=== PATIENT | female | born 1935 ===

== ENCOUNTER 2018-01-03 13:28 | Emergency (ER) | payer OTHER ==
[~2018-01-03] VITALS: Ht 157.5 cm; Wt 59.9 kg
[~2018-01-03 13:28] MED LIST: CEFTIN250 MG/5 M PO; CHOLESTYRAMINE R5 GM; PEPCID40 MG PO; PROTONIX40 MG PO; SYNTHROID125 MCG
[2018-01-03] MEDS ORDERED: PEPCID20 MG (13:50)
[2018-01-03] MEDS ORDERED: RIVASTIGMINE1 EAC1 (13:51)
== END 2018-01-03 21:54 | disposition home or self-care (01) ==
LOC: ER 13:28
DX: K29.70 Gastritis, unspecified, without bleeding (principal)

== ENCOUNTER 2018-04-28 08:13 | Emergency (ER) | payer OTHER ==
[~2018-04-28] VITALS: Ht 154.9 cm; Wt 63.5 kg
[~2018-04-28 08:13] MED LIST changes: +PEPCID20 MG; +RIVASTIGMINE1 EAC1
[2018-04-28] MEDS ORDERED: PROTONIX40 M1 PO (13:26)
== END 2018-04-28 16:04 | disposition home or self-care (01) ==
LOC: ER 08:13
DX: K29.60 Other gastritis without bleeding (principal)

== ENCOUNTER 2023-04-13 19:26 | Emergency (ER) | payer OTHER ==
[~2023-04-13] VITALS: Ht 157.5 cm; Wt 54.4 kg
[~2023-04-13 19:26] MED LIST changes: +PROTONIX40 M1 PO
[2023-04-13] MEDS ORDERED: SYNTHROID88 MCG PO (19:40)
== END 2023-04-13 22:00 | disposition home or self-care (01) ==
LOC: ER 19:26
DX: U07.1 COVID-19 (principal); Z88.2 Allergy status to sulfonamides; Z88.8 Allergy status to other drugs, medicaments and biological substances; Z91.018 Allergy to other foods

== ENCOUNTER 2025-04-29 07:45 | Emergency (ER) | payer OTHER ==
[~2025-04-29] VITALS: Ht 157.5 cm; Wt 44.5 kg
[~2025-04-29 07:45] MED LIST changes: +SYNTHROID88 MCG PO
[2025-04-29] MEDS ORDERED: SYNTHROID75 MCG PO (08:13)
[2025-04-29 09:18] LABS: BASO % 0.3 % (0.1-1.2); EOS # 0.02 (0.04-0.54); EOS % 0.3 % (0.7-7.0); HEMATOCRIT 39.6 % (34.1-44.9); HEMOGLOBIN 13.4 g/dL (11.2-15.7); LYMPH # 0.84 (1.18-3.74); LYMPH % 12.6 % (19.3-53.1); MEAN CORPUSCULAR HEMOGLOBIN 30.5 pg (25.6-32.2); MONO # 0.63 (0.24-0.82); MONO % 9.4 % (4.7-12.5); NEUT # 5.16 (1.56-6.13); NEUT % 77.3 % (34.0-71.1); PLATELET COUNT 181 K/uL (163-369); RED CELL DISTRIBUTION WIDTH 12.7 % (11.6-14.4)
[2025-04-29 09:21] LABS: CALCIUM 9.2 mg/dL (8.5-10.1); CREATININE SERUM 0.62 mg/dL (0.55-1.02); GFR 91.05; POTASSIUM 3.73 mEq/L (3.5-5.1)
== END 2025-04-29 18:37 | disposition home or self-care (01) ==
LOC: ER 07:45
PROVIDERS: Emergency Medicine
DX: R55 Syncope and collapse (principal); G89.11 Acute pain due to trauma; R51.9 Headache, unspecified; E03.8 Other specified hypothyroidism; Z88.1 Allergy status to other antibiotic agents; Z88.2 Allergy status to sulfonamides; Z91.018 Allergy to other foods